=== PATIENT | male | born 1945 | race Two or more races ===

== ENCOUNTER 2025-05-16 18:10 | Inpatient (IN) | payer MEDICARE, OTHER ==
[~2025-05-16] VITALS: Ht 165.1 cm; Wt 86.9 kg
--- NOTE | 2025-05-16 18:23 | ECG ---
[facility] Test Date: 2025-05-16 Test Time: 18:15:15 Pat Name: LOUIS ACEVEDO Department: Room: [facility] Gender: M Copyright Clerk: REJI : 1945 Requested By: JESSICA COURTNEY Order Number: [id number] Reading MD: Preet Stewart Measurements Intervals [place] Rate: 114 P: 33 CO: 149 QRS: 19 QRSD: 100 T: 27 QT: 344 QTc: 474 Interpretive Statements Sinus tachycardia Low voltage, precordial leads Artifact in lead(s) I,II,III,aVR,V5 Electronically Signed On 05-20-2025 9:34:18 PDT by Preet Stewart Please click the below link to view image of tracing.
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
[2025-05-16 18:43] LABS: Hematocrit 46.3 % (41.0-53.0); Hemoglobin 16.0 g/dL (13.5-17.5); Mean Corpuscular Hemoglobin 32.1 pg (28.0-32.0); Mean Corpuscular Volume 93.3 fL (80.0-100.0); Nucleated Red Blood Cells % 0.0 %
[2025-05-16 18:44] VITALS: PULSE 104; RESP 18; O2SAT 94
--- NOTE | 2025-05-16 19:06 | DVH ---
EXAM: XY CHEST PORTABLE HISTORY: Shortness of breath TECHNIQUE: 1 view of the chest COMPARISON: None FINDINGS/IMPRESSION: LUNGS: No pleural effusion, consolidation, or pneumothorax MEDIASTINUM: Normal cardiac size. Question sequelae of hypertension BONES: No acute osseous abnormality OTHER: None
[2025-05-16 19:07] LABS: Alanine Aminotransferase 24 U/L (7-40); Albumin 4.4 g/dL (3.2-4.8); Alkaline Phosphatase 92 U/L (46-116); Anion Gap 10 (5-15); BUN/Creatinine Ratio 16.1 (10.0-20.0); Bilirubin, Total 0.9 mg/dL (0.2-1.0); Blood Urea Nitrogen 14 mg/dL (9-23); Calcium 9.5 mg/dL (8.7-10.4); Carbon Dioxide 28 mmol/L (20-31); Lipase 36 U/L (12-53); Potassium 4.2 mmol/L (3.5-5.1); Total Protein 6.9 g/dL (5.7-8.2)
[2025-05-16 19:11] LABS: Chloride 110 mmol/L (98-107); Glucose 106 mg/dL (74-106); Sodium 148 mmol/L (136-145)
--- NOTE | 2025-05-16 19:43 | DVH ---
EXAM: CT HEAD WITHOUT CONTRAST INDICATION: Altered mental status TECHNIQUE: CT images of the head were obtained without administration of IV contrast. CT scans at [facility] facility use dose modulation, iterative reconstruction, and/or weight based dosing when appropriate to reduce radiation dose to as low as reasonably achievable. COMPARISON: None FINDINGS: PARENCHYMA: No acute hemorrhage. There is no mass effect, midline shift, or herniation. There is pres ervation of the shukla white differentiation. Mild scattered hypoattenuation along the periventricular, centrum semiovale, and deep white matter tracts, which are nonspecific however statistically most li celi represent chronic microvascular ischemic change. Calcification likely benign of the right inferi or temporal lobe. VENTRICLES: No hydrocephalus. EXTRA-AXIAL SPACES: No extra-axial fluid collections. OTHER: The bony structures are intact. Visualized portions of the paranasal sinuses and mastoid air cells are clear. IMPRESSION: 1. No CT evidence of an acute intracranial abnormality. 2. Chronic microvascular ischemic change.
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
[2025-05-16 23:57] LABS: Urine Protein, UAD TRACE (Negative)
[2025-05-17] VITALS (8 sets, daily range): BP systolic 131–156; BP diastolic 70–90; PULSE 56–76; RESP 14–20; TEMP 97.5–98.4; O2SAT 94–97
[2025-05-17] MEDS: TROLAMINE SALICYLATE 10% TOP CREAM TOP SCH (00:16)
--- NOTE | 2025-05-17 00:37 | DVH ---
CLINICAL INDICATION: pain TECHNIQUE: 2 views XY L SHOULDER 2+ VIEW XRAY Comparison: None FINDINGS: No evidence of acute fracture or dislocation. [id number] acromioclavicular and glenohumeral os teoarthrosis. Osteopenia. No acute finding of the soft tissues or imaged chest. IMPRESSION: 1. No acute finding of the left shoulder.
[2025-05-17 00:39] LABS: COVID19 ANTIGEN SOFIA FIA NEGATIVE (NEGATIVE)
[2025-05-17 01:58] LABS: Amphetamine Screen, Urine Neg (NEGATIVE); Barbiturate Scree,Urine Neg (NEGATIVE); Benzodiazephine Screen, Urine Neg (NEGATIVE); Cannabinoid Screen, Urine Neg (NEGATIVE); Cocaine Screen, Urine Neg (NEGATIVE); Opiate Scree,Urine Neg (NEGATIVE); Phencyclidine Screen, Urine Neg (NEGATIVE)
[2025-05-17] MEDS: ACETAMINOPHEN 325 MG TAB PO PRN (02:28)
[2025-05-17] MEDS ORDERED: ACETAMINOPHEN 325 MG TAB PO ONE (02:30)
[2025-05-17 05:50] LABS: Hematocrit 41.5 % (41.0-53.0); Hemoglobin 14.4 g/dL (13.5-17.5); Mean Corpuscular Hemoglobin 32.3 pg (28.0-32.0); Mean Corpuscular Volume 93.0 fL (80.0-100.0); Nucleated Red Blood Cells % 0.0 %
[2025-05-17 06:04] LABS: Alanine Aminotransferase 21 U/L (7-40); Albumin 3.9 g/dL (3.2-4.8); Alkaline Phosphatase 77 U/L (46-116); Anion Gap 9 (5-15); BUN/Creatinine Ratio 16.2 (10.0-20.0); Blood Urea Nitrogen 12 mg/dL (9-23); Calcium 9.1 mg/dL (8.7-10.4); Carbon Dioxide 29 mmol/L (20-31); Chloride 106 mmol/L (98-107); Glucose 90 mg/dL (74-106); Potassium 3.6 mmol/L (3.5-5.1); Sodium 144 mmol/L (136-145); Total Protein 6.3 g/dL (5.7-8.2)
[2025-05-17 06:10] LABS: Bilirubin, Total 1.3 mg/dL (0.2-1.0)
[2025-05-17] MEDS: ENOXAPARIN SOD 40 MG/0.4 ML SYRINGE SC SCH (10:00)
--- NOTE | 2025-05-17 13:23 | DVHPN2 ---
Reviewed: Care Plan, H&P, Labs, Medications, Previous Orders, Radiology Changes from previous H/P or p: No Changes Eyes: No Pain, No Vision change, No Conjunctivae inflammation, No Eyelid inflammation, No Other, No Redness ENT: No Ear pain, No Ear discharge, No Nose pain, No Nose discharge, No Nose congestion, No Mouth pain, No Mouth swelling, No Throat pain, No Throat swelling, No Other Cardiovascular: No Chest Pain, No Palpitations, No Orthopnea, No Paroxysmal Noc. Dyspnea, No Edema, No Lt Headedness, No Other Respiratory: No Cough, No Dry, No Shortness of breath, No SOB with excertion, No Wheezing, No Hemoptysis, No Pleuritic Pain, No Sputum, No Other Gastrointestinal: No Nausea, No Vomiting, No Abdominal Pain, No Diarrhea, No Constipation, No Melena, No Hematochezia, No Other Genitourinary: No Dysuria, No Frequency, No Incontinence, No Hematuria, No Retention, No Other Musculoskeletal: No other, No neck pain; shoulder pain; No arm pain, No back pain, No hand pain, No leg pain, No foot pain Skin: No Rash, No Lesions, No Jaundice, No Bruising, No Other Objective Vitals Vital Signs Date Time Temp Pulse Resp B/P (MAP) Pulse Ox O2 Delivery O2 Flow Rate FiO2 05/17/25 12:55 98.4 69 18 156/70 (98) 96 98.4 05/17/25 07:30 Room Air* 0 21 Intake/Output Intake and Output 05/17/25 07:00 Intake Total 240 ml Balance 240 ml Intake Oral 240 ml Medications Current Medications Medications Dose Ordered Sig/Cristela Route Start Time Stop Time Status Last Admin Dose Admin Enoxaparin Sodium 40 mg DAILY SC 05/17/25 10:00 Trolamine Salicylate 1 applic BID TOP 05/16/25 23:30 Acetaminophen 650 mg Q6HP PRN PO 05/16/25 23:30 05/17/25 02:28 650 MG Laboratory Results Laboratory Tests 05/17/25 05:05 Chemistry Test 05/16/25 18:30 05/17/25 05:05 Albumin 4.4 g/dL (3.2-4.8) 3.9 g/dL (3.2-4.8) Calcium Level 9.5 mg/dL (8.7-10.4) 9.1 mg/dL (8.7-10.4) Total Protein 6.9 g/dL (5.7-8.2) 6.3 g/dL (5.7-8.2) Lipid panel Test 05/16/25 18:30 Lipase 36 U/L (12-53) Cardiac Markers Test 05/16/25 18:30 B-Type Natriuretic Peptide 29.33 pg/mL (0-100) LFT Test 05/16/25 18:30 05/17/25 05:05 Alanine Aminotransferase (ALT) 24 U/L (7-40) 21 U/L (7-40) Alkaline Phosphatase 92 U/L (46-116) 77 U/L (46-116) Aspartate Amino Transferase (AST) 36 U/L (13-40) 33 U/L (13-40) Total Bilirubin 0.9 mg/dL (0.2-1.0) 1.3 mg/dL (0.2-1.0) H HgA1c, TSH Test 05/16/25 18:30 Hemoglobin A1c 5.4 % A1C (<5.7) Thyroid Stimulating Hormone (TSH) 4.11 uIU/mL (0.55-4.78) Urinalysis Test 05/16/25 23:06 Urine Color Yellow (Yellow) Urine Clarity Turbid (Clear) H Urine pH 6.5 (5.0-9.0) Urine Specific [place] 1.025 (1.001-1.035) Urine Protein Trace (Negative) H Urine Ketones 1+ (Negative) H Urine Blood Negative /uL (Negative) Urine Nitrite Negative (Negative) Urine Bilirubin Negative (Negative) Urine Urobilinogen Normal mg/dL (Negative) Urine Leukocyte Esterase Negative /uL (Negative) Urine RBC 11 /hpf (0 - 3) Urine Microscopic WBC 1 /HPF (0-3) Urine Squamous Epithelial Cells None seen /hpf (<5) Urine Renal Epithelial Cells Few /hpf (None Seen) Urine Bacteria Few /hpf (None Seen) H Urine Hyaline Casts Many /lpf (0 - 2) Urine Mucus Few (None Seen) Urine Glucose Normal mg/dL (Normal) Labs and/or images reviewed: Labs reviewed by me, Image(s) reviewed by me Assessment/Plan Assessment/Plan Acute metabolic versus toxic encephalopathy Hypertensive emergency improved, CT head negative, Left shoulder pain possibly due to arthritis left shoulder x-ray negative Drug screen negative ACS ruled out Patient feels better and wants to go home Plan discussed with: Patient Date of Service: May 17, 2025 Billing Provider: LAURY MCLEOD MD Common Visit Codes: [id number] INP/OBS CARE(HIGH) LAURY MCLEOD MD May 17, 2025 13:23
[2025-05-17] MEDS ORDERED: METO-158 PO (13:24)
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
--- NOTE | 2025-05-18 10:00 | DVHSR ---
APPROVED REPORT EXAM: Two-dimensional and M-mode echocardiogram with Doppler and color Doppler. Blood Pressure: 139/90 mmHg INDICATION Hypertension HFpEF? RISK FACTORS Height: 5'5", Weight: 191 DIMENSIONS LVDd4.1 (3.8-5.7cm)LA (2D)4.8 (1.9-4.0cm)Aortic Root3.4 (2.0-3.7cm) LVDs2.9 (2.5-4.0cm)LA (MM) (1.9-4.0cm)Aortic Cusp Exc1.7 (1.5-2.0cm) EF (%) 56.0 (55-70%)Rt. Atrium4.9 (1.9-4.0cm)Asc. Aorta cm IVSd1.1 (0.7-1.1cm)RV (D) (1.8-2.4cm) PWd1.0 (0.7-1.1cm) Mitral Valve MitralMitral Stenosis E wave0.54m/sMV Mean GR.mmHg A wave0.78m/sMV Peak GR.mmHg E/A ratio0.72D MVAcm2 DECEL [id number] 1/2 [place] Aortic Valve Aortic ValveAortic Stenosis V10.86m/Mariaa Mean GR.10mmHg V22.17m/Mariaa Peak GR.19mmHg LVOT Diameter2.1 (1.8-2.4cm)Doppler AVA1.37cm2 Pulmonic Valve V21.26m/s Tricuspid Valve TR Velocity2.68m/s [id number] Other Information Technically limited study due to body habitus. Conclusion lvef 55-60% borderline lvh normal rv function normal atria mild aortic stenosis no severe valve abnormalities noted
== END 2025-05-17 17:24 | disposition home or self-care (01) | DRG 553 ==
LOC: EDBD 18:10 → ER 18:10 → OVERFLOW 23:18 → WEST WING 05-17 02:05
PROVIDERS: ATTEND Physician Assistant
DX: M19.012 Primary osteoarthritis, left shoulder (principal); G92.8 Other toxic encephalopathy; I16.1 Hypertensive emergency; E80.6 Other disorders of bilirubin metabolism; Z79.899 Other long term (current) drug therapy
CPT/HCPCS: 36415; 70450; 71045; 73030; 80053; 80307; 80320; 81001; 82140; 82306; 82607; 83036; 83605; 83690; 83880; 84443; 84484; 85025; 87040; 87086; 87426; 87804; 93005; 93306; G0378